=== PATIENT | female | born 1955 ===

== ENCOUNTER 2017-10-24 09:49 | Outpatient (CLI) | payer OTHER | END 2017-10-24 09:59 | disposition home or self-care (01) | LOC: LAB 09:49 | DX: N30.00 Acute cystitis without hematuria (principal) ==

== ENCOUNTER → 2017-11-03 15:07 | Outpatient (CLI) | payer OTHER | END | disposition home or self-care (01) | LOC: LAB 15:07 | DX: N30.00 Acute cystitis without hematuria (principal) ==

== ENCOUNTER 2018-02-09 10:33 | Outpatient (CLI) | payer OTHER | END 2018-02-09 10:40 | disposition home or self-care (01) | LOC: LAB 10:33 | DX: N30.00 Acute cystitis without hematuria (principal) ==

== ENCOUNTER 2018-04-03 11:12 | Outpatient (CLI) | payer OTHER | END 2018-04-03 11:22 | disposition home or self-care (01) | LOC: LAB 11:12 | DX: N30.00 Acute cystitis without hematuria (principal) ==

== ENCOUNTER 2018-04-06 15:01 | Outpatient (CLI) | payer OTHER | END 2018-04-06 15:11 | disposition home or self-care (01) | LOC: LAB 15:01 | DX: N30.00 Acute cystitis without hematuria (principal) ==

== ENCOUNTER 2018-05-25 10:15 | Outpatient (CLI) | payer OTHER | END 2018-05-25 10:23 | disposition home or self-care (01) | LOC: LAB 10:15 | DX: N30.00 Acute cystitis without hematuria (principal) ==

== ENCOUNTER 2018-07-13 16:51 | Outpatient (CLI) | payer OTHER | END 2018-07-13 16:59 | disposition home or self-care (01) | LOC: LAB 16:51 | DX: N30.00 Acute cystitis without hematuria (principal); N30.20 Other chronic cystitis without hematuria ==

== ENCOUNTER 2018-07-14 10:17 | Outpatient (CLI) | payer OTHER | END 2018-07-14 13:04 | disposition home or self-care (01) | LOC: LAB 10:17 | DX: N30.20 Other chronic cystitis without hematuria (principal) ==

== ENCOUNTER → 2018-12-04 09:36 | Outpatient (CLI) | payer OTHER | END | disposition home or self-care (01) | LOC: LAB 09:36 | DX: N30.00 Acute cystitis without hematuria (principal) ==

== ENCOUNTER → 2019-03-12 10:07 | Outpatient (CLI) | payer OTHER | END | disposition home or self-care (01) | LOC: LAB 10:07 | DX: N30.00 Acute cystitis without hematuria (principal) ==

== ENCOUNTER 2019-06-18 10:44 | Outpatient (CLI) | payer OTHER | END 2019-06-18 11:36 | disposition home or self-care (01) | LOC: LAB 10:44 | DX: C67.9 Malignant neoplasm of bladder, unspecified (principal); N39.0 Urinary tract infection, site not specified ==

== ENCOUNTER 2022-01-28 10:19 | Outpatient (CLI) | payer OTHER | END 2022-01-28 10:22 | disposition home or self-care (01) | LOC: LAB 10:19 | PROVIDERS: ATTEND Urology | DX: N30.00 Acute cystitis without hematuria (principal) ==